=== PATIENT | female | born 1960 | race Caucasian/White ===

== ENCOUNTER 2019-04-24 05:36 | Inpatient (IN) ==
[2019-04-24] MEDS ORDERED: ceFAZolin 1,000 MG in SYRINGE 1 EACH IV ONE (06:00)
[2019-04-24] MEDS ORDERED: VANCOMYCIN INJ 1,000 MG in SODIUM CHLORIDE 0.9% 250 ML IV ONE (06:00)
[2019-04-24] MEDS ORDERED: ceFAZolin 1,000 MG VIAL ONE (06:20)
[2019-04-24] MEDS ORDERED: VANCOMYCIN 1,000 MG VIAL ONE (06:20)
[2019-04-24] MEDS ORDERED: TRANEXAMIC ACID 1,000 MG/10 ML VIAL ONE (06:37)
[2019-04-24] MEDS ORDERED: LACTATED RINGERS 1,000 ML IV SCH (07:00)
[2019-04-24] MEDS ORDERED: LACTULOSE 20 GM/30 ML UDCUP PO PRN (07:13)
[2019-04-24] MEDS ORDERED: ONDANSETRON 4 MG/2 ML VIAL IV PRN (07:13)
[2019-04-24] MEDS ORDERED: TEMAZEPAM 7.5 MG CAPSULE PO PRN (07:13)
[2019-04-24] MEDS ORDERED: diphenhydrAMINE CAP 25 MG CAPSULE PO PRN (07:13)
[2019-04-24] MEDS ORDERED: BISACODYL 10 MG SUPP RECTAL PRN (07:13)
[2019-04-24] MEDS ORDERED: PROMETHAZINE 25 MG/1 ML VIAL IM PRN (07:13)
[2019-04-24] MEDS ORDERED: MORPHINE 4 MG/1 ML VIAL IV PRN ×2 (07:13→11:15)
[2019-04-24] MEDS ORDERED: BUPIVACAINE 0.5% 50 ML VIAL ONE (07:18)
[2019-04-24] MEDS ORDERED: LIDOCAINE 1% 5 ML VIAL ONE (07:18)
[2019-04-24] MEDS ORDERED: EPINEPHrine 1 MG/ML VIAL ONE (07:19)
[2019-04-24] MEDS ORDERED: DEXAMETHASONE 4 MG/1 ML VIAL ONE (07:19)
[2019-04-24] MEDS ORDERED: NITROGLYCERIN SL 0.4 MG TABLET SL PRN (07:21)
[2019-04-24] MEDS ORDERED: PROPOFOL 200 MG/20 ML VIAL IV ONE (08:57)
[2019-04-24] MEDS ORDERED: MIDAZOLAM 2 MG/2 ML VIAL ONE (08:57)
[2019-04-24] MEDS ORDERED: BUPIVACAINE SPINAL 0.75% 2 ML AMP SPINAL ONE (08:57)
[2019-04-24] MEDS ORDERED: ACETAMINOPHEN 1,000 MG/100 ML VIAL IV ONE (08:58)
[2019-04-24] MEDS ORDERED: ONDANSETRON 4 MG/2 ML VIAL ONE ×2 (08:58)
[2019-04-24] MEDS ORDERED: PHENYLEPHRINE 1 MG/10 ML SYRINGE IV ONE (08:58)
[2019-04-24] MEDS: PEG PROPYLENE GLYCOL BOTH EYES SCH ×2 (09:00→21:59)
[2019-04-24] MEDS ORDERED: DOCUSATE SODIUM 100 MG CAPSULE PO SCH (09:00)
[2019-04-24] MEDS: FUROSEMIDE 40 MG TABLET PO SCH ×2 (09:00→16:59)
[2019-04-24] MEDS: LEVOFLOXACIN 500 MG TABLET PO SCH (09:00)
[2019-04-24] MEDS: HYOSCYAMINE 0.125 MG TABLET PO SCH ×3 (09:00→21:59)
[2019-04-24] MEDS: FLUoxetine 20 MG CAPSULE PO SCH (09:00)
[2019-04-24] MEDS: BUDESONIDE/FORMOTEROL 160-4.5 INHALER 6 GM INH SCH ×2 (09:00→21:59)
[2019-04-24] MEDS: GABAPENTIN 300 MG CAPSULE PO SCH ×3 (09:00→21:59)
[2019-04-24] MEDS: MAGNESIUM CHLORIDE 64 MG TABLET PO SCH (09:00)
[2019-04-24] MEDS: DOCUSATE SODIUM 100 MG CAPSULE PO SCH ×2 (10:13→21:59)
[2019-04-24] MEDS: ISOSORBIDE DINITRATE 10 MG TABLET PO SCH ×2 (10:14→21:59)
[2019-04-24] MEDS ORDERED: ALBUTEROL 2.5 MG/3 ML NEB RESP TX PRN (10:30)
[2019-04-24] MEDS: ALBUTEROL 2.5 MG/3 ML NEB RESP TX SCH ×2 (10:38→20:00)
[2019-04-24] MEDS: MELOXICAM 7.5 MG TABLET PO SCH (11:30)
[2019-04-24] MEDS: POTASSIUM CHLORIDE 10 MEQ TABLET PO SCH (11:30)
[2019-04-24] MEDS ORDERED: NICOTINE 21 MG/24 HR PATCH TRANSDERM PRN (14:35)
[2019-04-24 14:38] LABS: Basophils % 0.3 % (0.0-0.8); Eosinophils % 0.1 % (0.00-10.9); Hematocrit 36.6 VOL% (35.7-47.0); Hemoglobin 11.7 GM/DL (12.0-16.0); Immature Granulocytes % 0.6 %; Lymphocytes # 1.1 10*3/uL (1.4-4.0); Lymphocytes % 6.8 % (21.3-54.2); Mean Corpuscular Volume 89.3 FL (87-102); Mean Platelet Volume 9.9 FL (9.6-12.0); Neutrophils % 88.2 % (38.7-73.9); Platelet Count 284 T/CUMM (130-400); Red Cell Distribution Width 13.7 % (9.3-17.3)
[2019-04-24] MEDS: ceFAZolin 1,000 MG in SYRINGE 1 EACH IV SCH (14:48)
[2019-04-24 15:00] LABS: Calcium 8.8 MG/DL (8.5-10.1); Osmolality,Calculated 280.5 MOS/KG (273-304)
[2019-04-24] MEDS: CLORAZEPATE 3.75 MG TABLET PO SCH ×2 (16:00→21:59)
[2019-04-24] MEDS ORDERED: POTASSIUM CHLORIDE 20 MEQ TABLET PO PRN (16:16)
[2019-04-24] MEDS ORDERED: POTASSIUM CHLORIDE RIDER 10 MEQ in PREMIX 1 EACH IV PRN (16:16)
[2019-04-24] MEDS ORDERED: POTASSIUM CHLORIDE RIDER 20 MEQ in PREMIX 1 EACH IV PRN (16:16)
[2019-04-24] MEDS: traZODone 50 MG TABLET PO SCH (21:59)
[2019-04-24] MEDS: PANTOPRAZOLE 40 MG TABLET PO SCH (21:59)
[2019-04-24] MEDS: MONTELUKAST 10 MG TABLET PO SCH (21:59)
[2019-04-25] MEDS: FONDAPARINUX 2.5 MG/0.5 ML SYRINGE SUBCUT SCH (00:54)
[2019-04-25] MEDS: ceFAZolin 1,000 MG in SYRINGE 1 EACH IV SCH (01:00)
[2019-04-25 05:20] LABS: Basophils % 0.3 % (0.0-0.8); Eosinophils # 0.1 10*3/uL (0.0-0.87); Eosinophils % 0.5 % (0.00-10.9); Hematocrit 32.1 VOL% (35.7-47.0); Hemoglobin 10.2 GM/DL (12.0-16.0); Immature Granulocytes % 0.5 %; Immature Granulocytes Absolute 0.06 #; Lymphocytes % 16.8 % (21.3-54.2); Mean Corpuscular HGB Conc 31.8 GM/DL (32-36); Mean Corpuscular Volume 89.7 FL (87-102); Mean Platelet Volume 9.9 FL (9.6-12.0); Monocytes % 5.6 % (1.7-12.7); Neutrophils % 76.3 % (38.7-73.9); Platelet Count 244 T/CUMM (130-400); Red Blood Count 3.58 MC/CUMM (3.8-5.5); Red Cell Distribution Width 13.6 % (9.3-17.3); White Blood Count 11.9 T/CUMM (4-12)
[2019-04-25 05:38] LABS: Calcium 8.7 MG/DL (8.5-10.1); Osmolality,Calculated 281.4 MOS/KG (273-304)
[2019-04-25] MEDS: ALBUTEROL 2.5 MG/3 ML NEB RESP TX SCH ×3 (07:11→19:42)
[2019-04-25] MEDS: CLORAZEPATE 3.75 MG TABLET PO SCH ×3 (08:33→21:48)
[2019-04-25] MEDS: BUDESONIDE/FORMOTEROL 160-4.5 INHALER 6 GM INH SCH ×2 (08:33→21:47)
[2019-04-25] MEDS: DOCUSATE SODIUM 100 MG CAPSULE PO SCH ×2 (08:34→21:51)
[2019-04-25] MEDS: MELOXICAM 7.5 MG TABLET PO SCH (08:34)
[2019-04-25] MEDS: FLUoxetine 20 MG CAPSULE PO SCH (08:34)
[2019-04-25] MEDS: HYOSCYAMINE 0.125 MG TABLET PO SCH ×3 (08:34→21:51)
[2019-04-25] MEDS: MAGNESIUM CHLORIDE 64 MG TABLET PO SCH (08:34)
[2019-04-25] MEDS: LEVOFLOXACIN 500 MG TABLET PO SCH (08:34)
[2019-04-25] MEDS: POTASSIUM CHLORIDE 10 MEQ TABLET PO SCH (08:34)
[2019-04-25] MEDS: PANTOPRAZOLE 40 MG TABLET PO SCH ×2 (08:35→21:51)
[2019-04-25] MEDS: GABAPENTIN 300 MG CAPSULE PO SCH ×3 (08:35→21:51)
[2019-04-25] MEDS: PEG PROPYLENE GLYCOL BOTH EYES SCH ×3 (08:35→21:48)
[2019-04-25] MEDS: ISOSORBIDE DINITRATE 10 MG TABLET PO SCH ×2 (08:35→21:51)
[2019-04-25] MEDS: FUROSEMIDE 40 MG TABLET PO SCH ×3 (08:35→15:49)
[2019-04-25] MEDS: POTASSIUM CHLORIDE 20 MEQ TABLET PO SCH ×2 (12:22→16:00)
[2019-04-25] MEDS: traZODone 50 MG TABLET PO SCH (21:51)
[2019-04-25] MEDS: MONTELUKAST 10 MG TABLET PO SCH (21:51)
[2019-04-26] MEDS: FONDAPARINUX 2.5 MG/0.5 ML SYRINGE SUBCUT SCH (01:15)
[2019-04-26 05:23] LABS: Basophils # 0.1 10*3/uL (0.0-0.2); Basophils % 0.5 % (0.0-0.8); Eosinophils # 0.2 10*3/uL (0.0-0.87); Hematocrit 30.1 VOL% (35.7-47.0); Hemoglobin 9.7 GM/DL (12.0-16.0); Immature Granulocytes % 0.5 %; Immature Granulocytes Absolute 0.05 #; Lymphocytes # 2.4 10*3/uL (1.4-4.0); Lymphocytes % 23.4 % (21.3-54.2); Mean Corpuscular HGB Conc 32.2 GM/DL (32-36); Mean Corpuscular Volume 89.9 FL (87-102); Mean Platelet Volume 10.5 FL (9.6-12.0); Monocytes % 6.6 % (1.7-12.7); Platelet Count 237 T/CUMM (130-400); Red Blood Count 3.35 MC/CUMM (3.8-5.5); White Blood Count 10.3 T/CUMM (4-12)
[2019-04-26 05:48] LABS: Osmolality,Calculated 281.4 MOS/KG (273-304)
[2019-04-26] MEDS: ALBUTEROL 2.5 MG/3 ML NEB RESP TX SCH ×3 (07:07→18:55)
[2019-04-26] MEDS: LEVOFLOXACIN 500 MG TABLET PO SCH (09:54)
[2019-04-26] MEDS: DOCUSATE SODIUM 100 MG CAPSULE PO SCH ×2 (09:54→21:54)
[2019-04-26] MEDS: ISOSORBIDE DINITRATE 10 MG TABLET PO SCH ×2 (09:54→21:53)
[2019-04-26] MEDS: FUROSEMIDE 40 MG TABLET PO SCH ×2 (09:54→15:50)
[2019-04-26] MEDS: POTASSIUM CHLORIDE 10 MEQ TABLET PO SCH (09:54)
[2019-04-26] MEDS: HYOSCYAMINE 0.125 MG TABLET PO SCH ×3 (09:55→21:53)
[2019-04-26] MEDS: MELOXICAM 7.5 MG TABLET PO SCH (09:55)
[2019-04-26] MEDS: FLUoxetine 20 MG CAPSULE PO SCH (09:55)
[2019-04-26] MEDS: GABAPENTIN 300 MG CAPSULE PO SCH ×3 (09:55→21:54)
[2019-04-26] MEDS: MAGNESIUM CHLORIDE 64 MG TABLET PO SCH (09:55)
[2019-04-26] MEDS: PANTOPRAZOLE 40 MG TABLET PO SCH ×2 (09:55→21:55)
[2019-04-26] MEDS: CLORAZEPATE 3.75 MG TABLET PO SCH ×3 (09:56→21:53)
[2019-04-26] MEDS: MAGNESIUM HYDROXIDE SUSP 30 ML UDCUP PO PRN ×2 (09:58→21:55)
[2019-04-26] MEDS: PEG PROPYLENE GLYCOL BOTH EYES SCH ×3 (09:59→21:56)
[2019-04-26] MEDS: BUDESONIDE/FORMOTEROL 160-4.5 INHALER 6 GM INH SCH ×2 (10:00→22:02)
[2019-04-26] MEDS ORDERED: POTASSIUM CHLORIDE 20 MEQ TABLET PO ONE (11:16)
[2019-04-26] MEDS: traZODone 50 MG TABLET PO SCH (21:53)
[2019-04-26] MEDS: MONTELUKAST 10 MG TABLET PO SCH (22:02)
[2019-04-27] MEDS: FONDAPARINUX 2.5 MG/0.5 ML SYRINGE SUBCUT SCH (00:38)
[2019-04-27] MEDS: ALBUTEROL 2.5 MG/3 ML NEB RESP TX SCH (07:43)
[2019-04-27] MEDS: DOCUSATE SODIUM 100 MG CAPSULE PO SCH (08:47)
[2019-04-27] MEDS: FUROSEMIDE 40 MG TABLET PO SCH (08:47)
[2019-04-27] MEDS: POTASSIUM CHLORIDE 10 MEQ TABLET PO SCH (08:48)
[2019-04-27] MEDS: LEVOFLOXACIN 500 MG TABLET PO SCH (08:48)
[2019-04-27] MEDS: ISOSORBIDE DINITRATE 10 MG TABLET PO SCH (08:48)
[2019-04-27] MEDS: PANTOPRAZOLE 40 MG TABLET PO SCH (08:49)
[2019-04-27] MEDS: GABAPENTIN 300 MG CAPSULE PO SCH (08:49)
[2019-04-27] MEDS: MELOXICAM 7.5 MG TABLET PO SCH (08:49)
[2019-04-27] MEDS: HYOSCYAMINE 0.125 MG TABLET PO SCH (08:49)
[2019-04-27] MEDS: MAGNESIUM CHLORIDE 64 MG TABLET PO SCH (08:50)
[2019-04-27] MEDS: CLORAZEPATE 3.75 MG TABLET PO SCH (08:50)
[2019-04-27] MEDS: FLUoxetine 20 MG CAPSULE PO SCH (08:50)
[2019-04-27] MEDS: PEG PROPYLENE GLYCOL BOTH EYES SCH (08:53)
[2019-04-27] MEDS: BUDESONIDE/FORMOTEROL 160-4.5 INHALER 6 GM INH SCH (08:53)
[2019-04-27 13:02] VITALS: BP 132/65
== END 2019-04-27 14:00 | disposition swing bed (61) | DRG 302 ==
LOC: N.OR 05:36 → N.SDSINP 05:37 → N.3E 07:17
PROVIDERS: ADMIT Orthopaedic Surgery; ATTEND Orthopaedic Surgery